=== PATIENT | female | born 1985 | race Two or more races ===

== ENCOUNTER 2024-04-12 20:36 | Emergency (ER) | payer MEDICAID, OTHER ==
[2024-04-12] MEDS ORDERED: ALBUTEROL SULF 2.5 MG/0.5ML(0.5%) NEB SOLN ONE (20:48)
[2024-04-12] MEDS ORDERED: IPRATROPIUM BROM 0.5 MG/2.5ML INH SOL ONE (20:48)
== END 2024-04-12 20:38 | disposition left against medical advice (07) ==
LOC: EDBD 20:36 → ER 20:36
DX: J11.1 Influenza due to unidentified influenza virus with other respiratory manifestations (principal); Z53.21 Procedure and treatment not carried out due to patient leaving prior to being seen by health care provider